=== PATIENT | female | born 1980 | race Caucasian/White ===

== ENCOUNTER 2024-07-27 10:45 | Outpatient (CLI) | payer BC ==
[~2024-07-27 10:45] MED LIST: NITR100C6 PO
[2024-07-27] MEDS ORDERED: GADOTERATE MEGLUMINE 7.5 MMOL/15 ML VIAL IV ONE (16:28)
[2024-07-29 07:14] LABS: PROLACTIN 15.1 ng/mL (4.8-33.4)
== END 2024-07-27 23:59 | disposition home or self-care (01) ==
LOC: MRI 10:45
PROVIDERS: ATTEND Physician Assistant
DX: D35.2 Benign neoplasm of pituitary gland (principal); H54.7 Unspecified visual loss; R94.7 Abnormal results of other endocrine function studies; E83.52 Hypercalcemia; R53.83 Other fatigue
CPT/HCPCS: 36415; 70552; 70553; 82024; 82310; 82330; 83970; 84146; A9575

== ENCOUNTER 2024-12-19 10:43 | Day surgery (SDC) | payer BC ==
[~2024-12-19] VITALS: Ht 172.7 cm; Wt 63.6 kg
[2024-12-19] VITALS (14 sets, daily range): BP systolic 91–128; BP diastolic 50–69; PULSE 53–66; RESP 1–17; O2SAT 95–100
[~2024-12-19 10:43] MED LIST changes: +LACT30003 PO; -NITR100C6 PO
[2024-12-19] MEDS ORDERED: simethicone 40mg/0.6ml oral drops 30ml ONE (11:30)
[2024-12-19] MEDS ORDERED: MIDAZolam 1 MG/ML 5ML VIAL ONE ×2 (11:54→12:14)
[2024-12-19] MEDS ORDERED: fentaNYL/PF 50MCG/1 ML 2ML syringe ONE ×2 (11:54→12:13)
== END 2024-12-19 13:25 | disposition home or self-care (01) ==
LOC: GI LAB 10:43
PROVIDERS: ATTEND Internal Medicine Gastroenterology
DX: Z12.11 Encounter for screening for malignant neoplasm of colon (principal); K63.5 Polyp of colon; Z83.710 Family history of adenomatous and serrated polyps; K64.8 Other hemorrhoids; Z80.0 Family history of malignant neoplasm of digestive organs; Z83.719 Family history of colon polyps, unspecified
CPT/HCPCS: 45385; 99152; J2250; J3010; J7030; Z7512; 99153; A4620; C1889

== ENCOUNTER 2024-12-21 09:30 | Outpatient (CLI) | payer BC ==
[2024-12-21 10:13] LABS: BASOPHILS % (AUTO) 0.5 % (0-1); EOSINOPHILS # (AUTO) 0.1 X10'3 (0-0.9); EOSINOPHILS % (AUTO) 2.2 % (0-6); HEMATOCRIT 37.4 % (35.0-45.0); HEMOGLOBIN 12.8 g/dl (12.0-16.0); LYMPHOCYTES # (AUTO) 1.1 X10'3 (1.1-4.8); LYMPHOCYTES % (AUTO) 22.3 % (21-51); MEAN CORPUSCULAR HGB CONC 34.2 g/dL (33.0-36.5); MEAN CORPUSCULAR VOLUME 93.8 FL (78-98); MEAN PLATELET VOLUME 9.7 FL (7.4-10.4); MONOCYTES # (AUTO) 0.5 X10'3 (0-0.9); MONOCYTES % (AUTO) 10.1 % (2-12); NEUTROPHILS # (AUTO) 3.2 X10'3 (1.8-7.7); NEUTROPHILS % (AUTO) 64.9 % (42-75); PLATELET COUNT 190 X10'3 (140-440); RED BLOOD COUNT 3.99 X10'6 (4.20-5.60); RED CELL DISTRIBUTION WIDTH 12.6 % (11.5-14.5)
[2024-12-21 10:44] LABS: HEMOGLOBIN A1C 5.3 % (4.5-6.2)
[2024-12-21 10:45] LABS: ALANINE AMINOTRANSFERASE 21 U/L (12-78); ALBUMIN 3.7 G/DL (3.4-5.0); ALBUMIN/GLOBULIN RATIO 0.9 (1.1-1.5); ALKALINE PHOSPHATASE 64 IU/L (46-116); ANION GAP 8 (8-16); ASPARTATE AMINO TRANSFERASE 18 U/L (10-37); BILIRUBIN,TOTAL 0.5 MG/DL (0.1-1.0); BLOOD UREA NITROGEN 10 MG/DL (7-18); BUN/CREATININE RATIO 12.7 (10.0-20.0); CHLORIDE 106 MMOL/L (99-107); CHOL/HDL RATIO 1.9 (0.00-4.99); CHOLESTEROL 150 MG/DL (0-200); CREATININE 0.79 MG/DL (0.40-0.90); GLUCOSE 89 MG/DL (70-104); HDL CHOLESTEROL 78 MG/DL (35-60); LDL CHOLESTEROL 59 MG/DL (50-100); POTASSIUM 4.3 MMOL/L (3.5-5.1); SODIUM 142 MMOL/L (135-145); TOTAL CARBON DIOXIDE 28.4 MMOL/L (24-32); TOTAL PROTEIN 7.6 G/DL (6.4-8.2); TRIGLYCERIDES 43 MG/DL (20-135); eGFR 79 ML/MIN
== END 2024-12-21 23:59 | disposition home or self-care (01) ==
LOC: LAB 09:30
PROVIDERS: ATTEND Physician Assistant
DX: Z00.01 Encounter for general adult medical examination with abnormal findings (principal); I10 Essential (primary) hypertension; R79.89 Other specified abnormal findings of blood chemistry; E78.00 Pure hypercholesterolemia, unspecified; E55.9 Vitamin D deficiency, unspecified; R94.6 Abnormal results of thyroid function studies; R80.9 Proteinuria, unspecified; R73.01 Impaired fasting glucose
CPT/HCPCS: 36415; 80053; 80061; 82043; 82570; 82652; 83036; 84443; 85025

== ENCOUNTER 2025-02-06 08:03 | Outpatient (CLI) | payer BC ==
[2025-02-06] MEDS ORDERED: GADOTERATE MEGLUMINE 7.5 MMOL/15 ML VIAL IV ONE (14:02)
[2025-02-07 13:37] LABS: ACTH, PLASMA 20.7 pg/mL (7.2-63.3); PROLACTIN 22.5 ng/mL (4.8-33.4)
== END 2025-02-06 23:59 | disposition home or self-care (01) ==
LOC: MRI 08:03
PROVIDERS: ATTEND Physician Assistant
DX: D35.2 Benign neoplasm of pituitary gland (principal); G93.0 Cerebral cysts
CPT/HCPCS: 36415; 70552; 70553; 82024; 82310; 82330; 83970; 84146; A9575

== ENCOUNTER 2025-09-04 07:45 | Outpatient (CLI) | payer BC ==
[2025-08-22 08:00] LABS: CREATININE 0.88 MG/DL (0.40-0.90); TOTAL CARBON DIOXIDE 28.8 MMOL/L (24-32); eGFR 69 ML/MIN
[2025-08-23 09:12] LABS: CORTISOL LC 16.5 ug/dL (6.2-19.4)
[2025-08-23 11:16] LABS: PROLACTIN 27.0 ng/mL (4.8-33.4)
[2025-08-23 13:19] LABS: ACTH, PLASMA 10.7 pg/mL (7.2-63.3)
[~2025-09-04 07:45] MED LIST changes: +NITR100C6 PO
--- NOTE | 2025-09-04 09:37 | RADIOLOGY REPORT ---
CLINICAL INDICATION: PITUITARY TUMOR COMPARISON: MR MRI HEAD on DOS: 02/06/25, MR MRI HEAD on DOS: 07/27/24, MR MRI HEAD on DOS: 01/04/24 TECHNIQUE: Multisequence multiplanar MRI images of the brain were obtained prior to and after the uneventful administration of 10 mL Clariscan contrast. FINDINGS: No acute infarct or hemorrhage. No midline shift. Stable 4 mm nonenhancing cystic structure in the right posterior superior aspect of the pituitary gland extending into the suprasellar region. Optic chiasm and infundibulum appear within normal limits and unchanged. No abnormal parenchymal or meningeal enhancement. Ventricles and sulci are within normal limits. Basal cisterns are patent. Cerebellum, brainstem, and midline structures are otherwise within normal limits. Mild mucosal thickening of the paranasal sinuses. Orbits are grossly unremarkable. IMPRESSION: 1. Stable small 4 mm cystic mass in the pituitary gland as described above. 2. No other mass or abnormal postcontrast enhancement in the brain or pituitary gland. 3. Additional nonacute findings as described above.
[2025-09-04] MEDS ORDERED: GADOTERATE MEGLUMINE 7.5 MMOL/15 ML VIAL IV ONE (11:02)
== END 2025-09-04 23:59 | disposition home or self-care (01) ==
LOC: MRI 07:45
PROVIDERS: ATTEND Physician Assistant
DX: D35.2 Benign neoplasm of pituitary gland (principal); H55.00 Unspecified nystagmus; R79.89 Other specified abnormal findings of blood chemistry; R73.01 Impaired fasting glucose; R80.9 Proteinuria, unspecified; R94.5 Abnormal results of liver function studies; E55.9 Vitamin D deficiency, unspecified; E78.00 Pure hypercholesterolemia, unspecified; I10 Essential (primary) hypertension
CPT/HCPCS: 36415; 70553; 80053; 82024; 82330; 83970; 84146; A9575